=== PATIENT | male | born 1970 | race African-American/Black ===

== ENCOUNTER 2024-06-06 04:22 | Day surgery (SDC) | payer OTHER ==
[2024-05-30 11:41] VITALS: BMI 44.6
[2024-06-06 09:08] VITALS: TEMP 98.2
[2024-06-06] MEDS ORDERED: LIDOCAINE VISCOUS 2% ORAL/TOP 15 ML UNIT-DOSE CUP ONE (10:12)
[2024-06-06 11:12] VITALS: RESP 18
[2024-06-06 11:15] VITALS: BP 116/65; PULSE 54
== END 2024-06-06 11:20 | disposition home or self-care (01) ==
LOC: JASU-ENDO 04:22
PROVIDERS: ATTEND Student in an Organized Health Care Education/Training Program
PROC: 0DB78ZX Excision of Stomach, Pylorus, Via Natural or Artificial Opening Endoscopic, Diagnostic (ICD-10-PCS; 2024-06-06)
PROC: 0DB68ZX Excision of Stomach, Via Natural or Artificial Opening Endoscopic, Diagnostic (ICD-10-PCS; principal; 2024-06-06 08:00)
DX: K29.50 Unspecified chronic gastritis without bleeding (principal)
CPT/HCPCS: 88305-TC; 88342-TC